=== PATIENT | male | born 1985 | race Caucasian/White ===

== ENCOUNTER 2019-03-19 19:23 | Emergency (ER) | payer OTHER ==
[~2019-03-19] VITALS: Ht 177.8 cm; Wt 95.3 kg
[2019-03-19] MEDS ORDERED: XANAX1 MG (19:34)
== END 2019-03-19 20:40 | disposition home or self-care (01) ==
LOC: ER 19:23
DX: F06.4 Anxiety disorder due to known physiological condition (principal)